=== PATIENT | female | born 1995 | race Caucasian/White ===

== ENCOUNTER 2023-03-14 22:27 | Inpatient (IN) | payer SELFPAY ==
[2023-03-15 01:19] LABS: HEMATOCRIT 34.4 % (37.0-47.0); HEMOGLOBIN 11.7 g/dL (12.0-16.0); MEAN CORPUSCULAR HEMOGLOBIN 30.2 pg (27.0-34.0); MEAN CORPUSCULAR VOLUME 88.7 fL (80-100); RED BLOOD CELL COUNT 3.88 10^6/uL (4.2-5.4); WHITE BLOOD CELL COUNT,WBC 10.4 10^3/uL (5.0-10.0)
[2023-03-15 01:27] LABS: APPEARANCE,URINE CLEAR (CLEAR); BILIRUBIN,URINE NEGATIVE (NEGATIVE); COLOR,URINE YELLOW (YELLOW); GLUCOSE,URINE NEGATIVE (NEGATIVE); KETONES,URINE NEGATIVE (NEGATIVE); LEUKOCYTE ESTERASE,URINE SMALL (NEGATIVE); NITRITE,URINE NEGATIVE (NEGATIVE); OCCULT BLOOD,URINE MODERATE (NEGATIVE); PROTEIN,URINE NEGATIVE (NEGATIVE); UROBILINOGEN,URINE 0.2 mg/dL (0.2-1.0)
[2023-03-15 01:31] LABS: AMPHETAMINES,URINE NEGATIVE (NEGATIVE); BARBITURATES,URINE NEGATIVE (NEGATIVE); BENZODIAZEPINE,URINE NEGATIVE (NEGATIVE); MDMA (ECSTASY), URINE NEGATIVE (NEGATIVE); METHADONE,URINE NEGATIVE (NEGATIVE); METHAMPHETAMINES,URINE NEGATIVE (NEGATIVE); OPIATES,URINE NEGATIVE (NEGATIVE); OXYCODONE,URINE NEGATIVE (NEGATIVE); PHENCYCLIDINE,URINE NEGATIVE (NEGATIVE); TCA,URINE NEGATIVE (NEGATIVE)
[2023-03-15 01:35] LABS: BACTERIA,URINE FEW /HPF (0-FEW/HPF); EPITHELIAL CELLS,URINE MODERATE /HPF (NOT SEEN); WBC,URINE 0-5 /HPF (0-5/HPF)
[2023-03-15 01:50] LABS: INR 0.9 (0.9-1.2); PROTHROMBIN TIME 9.3 SEC (9.0-12.0); PTT,PARTIAL THROMBOPLSTIN TIME 29.2 SEC (22.0-34.0)
[2023-03-15] MEDS ORDERED: Sodium Chloride 0.9% 10 ML Syringe FLUSH PRN (01:57)
[2023-03-15] MEDS ORDERED: Tranexamic Acid 1,000 MG in Sodium Chloride 0.9% 100 ML IV PRN (01:57)
[2023-03-15] MEDS ORDERED: Carboprost Tromethamine 250 MCG/1 ML Amp IM PRN (01:57)
[2023-03-15] MEDS ORDERED: Ondansetron 4 MG/2 ML SDV IVPUSH PRN (01:57)
[2023-03-15] MEDS ORDERED: Zolpidem 5 MG Tab PO PRN (01:57)
[2023-03-15] MEDS ORDERED: Misoprostol 400 MCG (4 X 100 MCG TAB) RECTAL PRN (01:57)
[2023-03-15] MEDS ORDERED: Simethicone 80 MG Tab.Chew PO PRN (01:57)
[2023-03-15] MEDS ORDERED: Docusate Sodium 100 MG Cap PO PRN (01:57)
[2023-03-15] MEDS ORDERED: Lidocaine 1% 30 ML SDV INJECT ONE (01:57)
[2023-03-15] MEDS ORDERED: Methylergonovine 0.2 MG/1 ML Amp IM PRN (01:57)
[2023-03-15] MEDS ORDERED: Benzocaine/Menthol 20%-0.5% Spray 78 GM Cannister TOP PRN (01:57)
[2023-03-15] MEDS ORDERED: Butorphanol 2 MG/ML SDV IVPUSH PRN (01:57)
[2023-03-15] MEDS ORDERED: Lactated Ringers 1,000 ML IV SCH (02:00)
[2023-03-15] MEDS ORDERED: Oxytocin/Normal Saline 30 UNIT/500 ML BAG IV SCH ×2 (02:00)
[2023-03-15] MEDS ORDERED: Ibuprofen 800 MG Tab PO PRN (07:00)
[2023-03-15] MEDS ORDERED: Acetaminophen 325 MG Tab PO PRN (07:00)
[2023-03-15] MEDS ORDERED: Ferrous Sulfate 325 MG Tab PO SCH (08:00)
[2023-03-15] MEDS ORDERED: Prenatal Multivitamin with Calcium/Folic Acid/Iron Tab PO SCH (09:00)
[2023-03-15] MEDS: Acetaminophen 325 MG Tab PO PRN ×2 (11:39→17:21)
[2023-03-17 12:48] LABS: C.TRACHOMATIS BY TMA Negative (Negative); N.GONORRHOEAE BY TMA Negative (Negative); SOURCE GENITAL
[2023-03-18 11:47] LABS: HBSAG SCREEN Negative (Negative)
== END 2023-03-15 18:00 | disposition home or self-care (01) | DRG 807 ==
LOC: DL.OBCHECK 22:27 → OBSVTOIN 03-15 01:57 → DL.OB 03-15 01:57 → UNDOADMOB 03-15 02:10 → DL.OB 03-15 02:10
PROVIDERS: ADMIT Obstetrics & Gynecology; ATTEND Obstetrics & Gynecology
PROC: 10E0XZZ Delivery of Products of Conception, External Approach (ICD-10-PCS; principal; 2023-03-15)
PROC: 10907ZC Drainage of Amniotic Fluid, Therapeutic from Products of Conception, Via Natural or Artificial Opening (ICD-10-PCS; 2023-03-15)
DX: O45.93 Premature separation of placenta, unspecified, third trimester (principal); Z37.0 Single live birth; Z3A.38 38 weeks gestation of pregnancy
CPT/HCPCS: 59409; 76815; 80305-QW; 80307; 81001; 85027; 85384; 85610; 85730; 86592; 86762; 86803; 86850; 86900; 86901; 87077; 87081; 87086; 87088; 87186; 87210; 87340; 87389; 87491; 87591; A9270-GY; J2590; J7120